=== PATIENT | female | born 1985 | race Hispanic/Latino ===

== ENCOUNTER 2017-04-26 14:15 | Emergency (ER) | payer SELFPAY ==
[2017-04-26] MEDS ORDERED: Insulin Regular 300 UNITS/3 ML VIAL ONE (14:51)
[2017-04-26 15:07] LABS: #Eosinphils 0.1 thou/uL (0.0-0.7); #Lymphocytes 2.4 thou/uL (1.20-3.40); #Monocytes 0.6 thou/uL (0.11-0.59); #Neutrophils 9.7 thou/uL (1.40-6.50); %Basophils 0.2 % (0.0-1.0); %Eosinophils 0.9 % (0.0-10.0); %Lymphocytes 18.7 % (21.0-51.0); %Monocytes 4.4 % (0.0-10.0); Hematocrit 39.2 % (36.0-47.0); Mean Platelet Volume 7.8 fL (7.4-10.4); Red Blood Cell (RBC) Count 5.09 mill/uL (4.20-5.40); White Blood Cell (WBC) Count 12.8 thou/uL (4.8-10.8)
[2017-04-26 15:18] LABS: Bilirubin Negative (Negative); Blood, Urine Large (Negative); Glucose, Urine (Dipstick) >=1000 mg/dL (Negative); Ketone, Urine Negative (Negative); Nitrite Negative (Negative); Protein, Urine (Dipstick) Negative (Neg-Trace); Urobilinogen 0.2 mg/dL (0.2-1.0)
[2017-04-26 15:24] LABS: Bacteria/HPF 1+ HPF (None Seen); Hyaline Casts/LPF 0-3 HYALINE CAST LPF (0-3 Hyaline)
[2017-04-26 15:29] LABS: ALT (SGPT) 19 U/L (8-55); AST (SGOT) 13 U/L (5-34); Alkaline Phosphatase 163 U/L (40-150); Anion Gap 13 mmol/L (10-20); BUN (Urea Nitrogen) 6 mg/dL (7.0-18.7); Bilirubin, Total 0.2 mg/dL (0.2-1.2); Calc. Creatinine Clearance 0 mL/min (70-130); Calcium 9.3 mg/dL (7.8-10.44); Carbon Dioxide 26 mmol/L (22-29); Chloride 95 mmol/L (98-107); Estimated GFR-MDRD 76; Globulin 3.7 g/dL (2.4-3.5); Lipase 27 U/L (8-78); Magnesium 1.7 mg/dL (1.6-2.6); Phosphorus 3.7 mg/dL (2.3-4.7); Protein, Total 7.6 g/dL (6.0-8.3)
--- NOTE | 2017-04-26 16:34 | RAD ---
PORTABLE AP CHEST X-RAY: 04/26/17 HISTORY: Syncope. COMPARISON: 02/09/16. FINDINGS: The cardiac silhouette and pulmonary vasculature are within normal limits. The lungs remain clear. Th ere has been no interval change from prior study. IMPRESSION: No acute cardiopulmonary process. POS: [facility]
[2017-04-26] MEDS ORDERED: HYDROcodone/Acetaminophen 5/325 mg Tablet ONE (16:43)
--- NOTE | 2017-04-26 16:45 | CT ---
NONCONTRAST CT HEAD 04/26/17 HISTORY: Patient passed out and hit head. Injury after hitting head. COMPARISON: 04/30/12. FINDINGS: There is no evidence of a hemorrhage, acute infarction, mass effect, or midline shift. The ventricula r system is normal in size, shape and position. No calvarial fracture is seen. There has been no inte rval change from the prior exam. IMPRESSION: No acute intracranial abnormality is demonstrated. POS: [facility]
[2017-04-26 18:24] LABS: Hemoglobin A1c 9.2 % (4.0-6.0)
[2017-04-26] MEDS ORDERED: Ibuprofen 200 MG TAB ONE (19:03)
[2017-04-27 03:11] LABS: Anion Gap 10 mmol/L (-14-95); T. Carbon Dioxide 27.9 mmol/L (1.0-85.0); pH (Venous) 7.403 (7.35-7.45); vO2 Saturation-calc 92.5 % (0.0-100.0)
== END 2017-04-26 19:47 | disposition home or self-care (01) ==
LOC: ERS 14:15
DX: E11.65 Type 2 diabetes mellitus with hyperglycemia (principal); N39.0 Urinary tract infection, site not specified; F31.9 Bipolar disorder, unspecified; Z87.891 Personal history of nicotine dependence
CPT/HCPCS: 36415; 36416; 70450; 71010; 80053; 81003; 81015; 81025; 82010; 82330; 82435; 82803; 83036; 83605; 83690; 83735; 83930; 84100; 84132; 84295; 85014; 85025; 93005; 96361; 96374; 96375; J0696; J1815

== ENCOUNTER 2017-06-07 15:47 | Emergency (ER) | payer SELFPAY ==
[2017-06-07] MEDS ORDERED: Acetaminophen 500 MG TAB ONE (16:19)
--- NOTE | 2017-06-07 16:42 | RAD ---
CHEST TWO VIEW: History: Cough. Comparison: 07-28-14 FINDINGS: Lungs are clear. No pneumothorax or effusion. Cardiac silhouette and mediastinal contours are within normal limits. IMPRESSION: No acute intrathoracic abnormality. POS: [facility]
== END 2017-06-07 17:19 | disposition home or self-care (01) ==
LOC: ERS 15:47
DX: J20.9 Acute bronchitis, unspecified (principal); E11.9 Type 2 diabetes mellitus without complications; F17.200 Nicotine dependence, unspecified, uncomplicated; Z79.84 Long term (current) use of oral hypoglycemic drugs
CPT/HCPCS: 71046; 99406

== ENCOUNTER 2017-09-21 19:09 | Emergency (ER) | payer MEDICAID, SELFPAY ==
[2017-09-21] MEDS ORDERED: Dexamethasone 10 MG/ML VIAL ONE (21:19)
[2017-09-21] MEDS ORDERED: Ketorolac Tromethamine 30 MG/ML VIAL ONE (21:19)
== END 2017-09-21 21:47 | disposition home or self-care (01) ==
LOC: ERS 19:09
DX: H65.91 Unspecified nonsuppurative otitis media, right ear (principal); E11.9 Type 2 diabetes mellitus without complications; Z87.891 Personal history of nicotine dependence
CPT/HCPCS: 96372; J1100; J1885

== ENCOUNTER 2017-11-28 09:25 | Emergency (ER) | payer MEDICAID, SELFPAY ==
[2017-11-28] MEDS ORDERED: Ondansetron ODT 8 MG TAB ONE (09:58)
== END 2017-11-28 11:24 | disposition home or self-care (01) ==
LOC: ERS 09:25
DX: K52.9 Noninfective gastroenteritis and colitis, unspecified (principal); E11.9 Type 2 diabetes mellitus without complications; F17.210 Nicotine dependence, cigarettes, uncomplicated; Z79.84 Long term (current) use of oral hypoglycemic drugs
CPT/HCPCS: 36416; 99283

== ENCOUNTER 2018-07-18 10:25 | Emergency (ER) | payer SELFPAY ==
[2018-07-18] MEDS ORDERED: Ibuprofen 800 MG TAB ONE (11:17)
== END 2018-07-18 11:23 | disposition home or self-care (01) ==
LOC: ERS 10:25
DX: K04.7 Periapical abscess without sinus (principal); E11.9 Type 2 diabetes mellitus without complications; F17.210 Nicotine dependence, cigarettes, uncomplicated
CPT/HCPCS: 99282

== ENCOUNTER 2020-05-11 19:01 | Emergency (ER) | payer SELFPAY | END 2020-05-11 19:50 | disposition home or self-care (01) | LOC: ERS 19:01 | DX: K02.9 Dental caries, unspecified (principal); K03.81 Cracked tooth; K08.89 Other specified disorders of teeth and supporting structures; E11.9 Type 2 diabetes mellitus without complications; F17.210 Nicotine dependence, cigarettes, uncomplicated | CPT/HCPCS: 99282 ==

== ENCOUNTER 2020-08-03 12:47 | Emergency (ER) | payer SELFPAY ==
[2020-08-03] MEDS ORDERED: Ketorolac Tromethamine 30 MG/ML VIAL ONE (14:35)
[2020-08-03] MEDS ORDERED: Metoclopramide 10 MG/10 ML UDCUP ONE (14:35)
[2020-08-03] MEDS ORDERED: Acetaminophen 500 MG TAB ONE (14:35)
[2020-08-03] MEDS ORDERED: diphenhydrAMINE 50 MG/ML VIAL ONE (14:35)
[2020-08-03] MEDS ORDERED: Metoclopramide HCl 10 MG/2 ML VIAL ONE (14:36)
== END 2020-08-03 15:35 | disposition home or self-care (01) ==
LOC: ERS 12:47
DX: R51.9 Headache, unspecified (principal); E11.9 Type 2 diabetes mellitus without complications; F17.210 Nicotine dependence, cigarettes, uncomplicated; Z79.84 Long term (current) use of oral hypoglycemic drugs
CPT/HCPCS: 96365; 96375; J1200; J1885; J2765

== ENCOUNTER 2021-03-18 17:13 | Emergency (ER) | payer SELFPAY | END 2021-03-18 19:05 | disposition home or self-care (01) | LOC: ERS 17:13 | DX: H92.02 Otalgia, left ear (principal) | CPT/HCPCS: 99282 ==

== ENCOUNTER 2022-03-11 15:45 | Emergency (ER) | payer SELFPAY ==
[2022-03-11] MEDS ORDERED: Ondansetron PF 4 MG/2 ML Vial ONE (16:17)
[2022-03-11 16:23] LABS: #Eosinphils 0.2 thou/uL (0.0-0.7); #Monocytes 0.8 thou/uL (0.11-0.59); #Neutrophils 11.2 thou/uL (1.40-6.50); %Basophils 0.3 % (0.0-1.0); %Eosinophils 1.1 % (0.0-10.0); %Lymphocytes 19.7 % (21.0-51.0); %Monocytes 5.4 % (0.0-10.0); %Neutrophils 73.5 % (42.0-75.0); Hemoglobin 14.9 g/dL (12.0-16.0); Mean Corpuscular HGB CONC 32.5 g/dL (32.0-36.0); Mean Corpuscular Hemoglobin 26.1 pg (27.0-31.0); Mean Corpuscular Volume 80.3 fL (78.0-98.0); Platelet Count 380 thou/uL (130-400); RBC Distribution Width 14.4 % (11.5-14.5); Red Blood Cell (RBC) Count 5.71 mill/uL (4.20-5.40); White Blood Cell (WBC) Count 15.2 thou/uL (4.8-10.8)
[2022-03-11 16:30] LABS: BHCG - Serum Negative (NEGATIVE); Pregs Control Background? CLEAR/WHITE (CLR/WHITE); Pregs Control Bar Appear? YES (CONTROL BAR)
[2022-03-11 16:38] LABS: Amphetamine Not Detected (NotDetected); Barbiturates Screen Not Detected (NotDetected); Benzodiazepine Screen Not Detected (NotDetected); Cocaine Metabolite Screen Not Detected (NotDetected); Methadone Not Detected (NotDetected); Methamphetamine Not Detected (NotDetected); Opiate Screen Not Detected (NotDetected); Oxycodone Screen Not Detected (NotDetected); Phencyclidine (PCP) Not Detected (NotDetected); THC/Cannabinoid Screen Detected (NotDetected); Tricyclic Screen Not Detected (NotDetected)
[2022-03-11 16:40] LABS: Bacteria/HPF 2+ HPF (None Seen); Bilirubin Negative (Negative); Blood, Urine Negative (Negative); Clarity Turbid (Clear); Glucose, Urine (Dipstick) Greater than 1000 mg/dL (Negative); Ketone, Urine 20 mg/dL (Negative); Leukocyte Negative Leu/uL (Negative); Nitrite Negative (Negative); Protein, Urine (Dipstick) 300 mg/dL (Neg-Trace); RBC/HPF 0-3 HPF (0-3)
[2022-03-11 16:41] LABS: Specific Gravity, Urine 1.047 (1.002-1.036)
[2022-03-11 16:42] LABS: Pregnancy Test - Urine (BHCG) Negative (Negative); Pregu Control Background? CLEAR/WHITE (CLR/WHITE); Pregu Control Bar Appear? YES (CONTROL BAR); Specific Gravity 1.047 (1.002-1.036)
[2022-03-11 16:48] LABS: Acetaminophen Less than 10.0 mcg/mL (10.0-30.0); Alcohol Less than 10 mg/dL (Less than 10); CK (CPK) 39 U/L (29-168); Lipase 39 U/L (8-78); Magnesium 1.5 mg/dL (1.6-2.6); Salicylate Less than 8.0 mg/dL (15.0-30.0)
[2022-03-11 16:49] LABS: ALT (SGPT) 33 U/L (8-55); AST (SGOT) 26 U/L (5-34); Albumin 4.5 g/dL (3.5-5.0); Alcohol Less than 10 mg/dL (Less than 10); Alkaline Phosphatase 130 U/L (40-110); Anion Gap 15 mmol/L (10-20); BUN (Urea Nitrogen) 11 mg/dL (7.0-18.7); Bilirubin, Total 0.3 mg/dL (0.2-1.2); Calc. Creatinine Clearance 0 mL/min (70-130); Calcium 10.1 mg/dL (7.8-10.44); Carbon Dioxide 24 mmol/L (22-29); Chloride 100 mmol/L (98-107); Estimated GFR 105; Glucose 302 mg/dL (70-105); Protein, Total 8.5 g/dL (6.0-8.3); Sodium 135 mmol/L (136-145)
[2022-03-11 19:40] LABS: Lactic Acid 2.1 mmol/L (0.5-2.2)
== END 2022-03-11 23:08 | disposition home or self-care (01) ==
LOC: ERS 15:45
DX: T38.3X2A Poisoning by insulin and oral hypoglycemic [antidiabetic] drugs, intentional self-harm, initial encounter (principal); E11.9 Type 2 diabetes mellitus without complications; I10 Essential (primary) hypertension; F17.210 Nicotine dependence, cigarettes, uncomplicated
CPT/HCPCS: 36416; 80053; 80306; 80307; 81003; 81015; 81025; 82550; 83605; 83690; 83735; 84443; 84703; 85025; 93005; 94760; 96374; J2405

== ENCOUNTER 2023-11-25 20:27 | Emergency (ER) | payer SELFPAY ==
[2023-11-25 21:19] LABS: Hematocrit 42.2 % (36.0-47.0); Hemoglobin 13.9 g/dL (12.0-16.0); Mean Corpuscular HGB CONC 32.9 g/dL (32.0-36.0); Mean Corpuscular Hemoglobin 24.4 pg (27.0-31.0); Mean Corpuscular Volume 74.2 fL (78.0-98.0); Mean Platelet Volume 9.4 fL (7.4-10.4); Platelet Count 406 10x3/uL (130-400); RBC Distribution Width 14.6 % (11.5-14.5); Red Blood Cell (RBC) Count 5.69 mill/uL (4.20-5.40)
[2023-11-25 21:45] LABS: Large Platelets 5.1 % (0-5); Lymphocytes 16 % (21-51); Microcytosis SLIGHT = 6-15 cells HPF (0-5); Monocytes 5 % (0-10); Neutrophil 77 % (42-75); Platelet Adequacy Comment Platelets Increased; Polychromasia SLIGHT = 2-3 cells HPF (0-2); Smudge Cells 19.4 %
[2023-11-25 21:46] LABS: Troponin I 0.014 ng/mL (< 0.028)
[2023-11-25 21:47] LABS: ALT (SGPT) 14 U/L (8-55); AST (SGOT) 13 U/L (5-34); Albumin 3.6 g/dL (3.5-5.0); Alkaline Phosphatase 127 U/L (40-110); Anion Gap 18 mmol/L (10-20); BUN (Urea Nitrogen) 7 mg/dL (7.0-18.7); Bilirubin, Total 0.2 mg/dL (0.2-1.2); Calc. Creatinine Clearance 0 mL/min (70-130); Calcium 9.8 mg/dL (7.8-10.44); Carbon Dioxide 20 mmol/L (22-29); Chloride 99 mmol/L (98-107); Estimated GFR 117; Globulin 4.3 g/dL (2.4-3.5); Glucose 279 mg/dL (70-105); Potassium 3.6 mmol/L (3.5-5.1); Protein, Total 7.9 g/dL (6.0-8.3); Sodium 133 mmol/L (136-145)
== END 2023-11-26 01:31 | disposition home or self-care (01) ==
LOC: ERS 20:27
DX: I10 Essential (primary) hypertension (principal); D75.839 Thrombocytosis, unspecified; D72.829 Elevated white blood cell count, unspecified; E11.9 Type 2 diabetes mellitus without complications; F17.210 Nicotine dependence, cigarettes, uncomplicated
CPT/HCPCS: 36415; 71046; 80053; 82550; 84484; 85025; 85379; 93005; 96360

== ENCOUNTER → 2024-04-28 | Emergency (ER) | payer SELFPAY ==
[~2024-04-28] MED LIST: Bacitracin 1 PK ONE; HYDROcodone/Acetaminophen 10/325 mg Tablet ONE; Lidocaine 1% w/Epinephrine 1:100K 20 ML VIAL ONE; Lidocaine/Transparent Dressing 1 EACH KIT ONE
== END ==
LOC: ERS 20:58
DX: S81.012A Laceration without foreign body, left knee, initial encounter (principal); S81.011A Laceration without foreign body, right knee, initial encounter; E11.9 Type 2 diabetes mellitus without complications; I10 Essential (primary) hypertension; F17.210 Nicotine dependence, cigarettes, uncomplicated; Z79.899 Other long term (current) drug therapy; W22.8XXA Striking against or struck by other objects, initial encounter
CPT/HCPCS: 12002; 99283

== ENCOUNTER 2024-05-02 13:16 | Emergency (ER) | payer SELFPAY ==
[2024-05-02] MEDS ORDERED: Ibuprofen 800 MG TAB ONE (14:20)
[2024-05-02] MEDS ORDERED: Bacitracin 1 PK ONE (14:23)
== END 2024-05-02 14:48 | disposition home or self-care (01) ==
LOC: ERS 13:16
DX: S80.211A Abrasion, right knee, initial encounter (principal); L03.115 Cellulitis of right lower limb; Z48.00 Encounter for change or removal of nonsurgical wound dressing; E11.9 Type 2 diabetes mellitus without complications; I10 Essential (primary) hypertension; F17.210 Nicotine dependence, cigarettes, uncomplicated; X58.XXXA Exposure to other specified factors, initial encounter
CPT/HCPCS: 87070; 87077; 87205; 99283

== ENCOUNTER 2025-02-14 15:52 | Emergency (ER) | payer SELFPAY ==
[~2025-02-14 15:52] MED LIST changes: -Bacitracin 1 PK ONE; -HYDROcodone/Acetaminophen 10/325 mg Tablet ONE; +Iopamidol-370 76% 500 ML MDV (1 ML CHARGE) ONE; -Lidocaine 1% w/Epinephrine 1:100K 20 ML VIAL ONE; -Lidocaine/Transparent Dressing 1 EACH KIT ONE
[2025-02-14 18:00] LABS: Anion Gap 17 mmol/L (10-20); BUN (Urea Nitrogen) 9 mg/dL (7.0-18.7); Calc. Creatinine Clearance 0 mL/min (70-130); Carbon Dioxide 23 mmol/L (22-29); Chloride 99 mmol/L (98-107); Potassium 3.8 mmol/L (3.5-5.1); Sodium 135 mmol/L (136-145)
[2025-02-14 18:01] LABS: ALT (SGPT) 13 U/L (Less than 34); AST (SGOT) 17 U/L (11-34); Albumin 4.0 g/dL (3.1-4.5); Alkaline Phosphatase 149 U/L (40-110); Bilirubin, Total 0.3 mg/dL (0.3-1.2); Calcium 10.0 mg/dL (7.8-10.44); Globulin 4.1 g/dL (2.4-3.5); Glucose 327 mg/dL (70-105); Lipase 104 U/L (8-78)
[2025-02-14 18:04] LABS: #Basophils 0.03 10x3/uL (0.0-0.2); #Eosinophils 0.19 10x3/uL (0.0-0.7); #Monocytes 0.83 10x3/uL (0.11-0.59); #Neutrophils 8.33 10x3/uL (1.40-6.50); %Basophils 0.2 % (0.0-1.0); %Eosinophils 1.5 % (0.0-10.0); %Lymphocytes 24.6 % (21.0-51.0); %Monocytes 6.6 % (0.0-10.0); %Neutrophils 66.5 % (42.0-75.0); Hematocrit 43.5 % (36.0-47.0); Hemoglobin 14.0 g/dL (12.0-16.0); Mean Corpuscular Hemoglobin 24.0 pg (27.0-31.0); Mean Corpuscular Volume 74.6 fL (78.0-98.0); Platelet Count 409 10x3/uL (130-400); Red Blood Cell (RBC) Count 5.83 mill/uL (4.20-5.40); White Blood Cell (WBC) Count 12.55 10x3/uL (4.8-10.8)
[2025-02-14] MEDS ORDERED: Pantoprazole 40 MG VIAL ONE (18:18)
[2025-02-14] MEDS ORDERED: Ondansetron PF 4 MG/2 ML Vial ONE (18:18)
[2025-02-14 19:16] LABS: Bacteria/HPF None Seen HPF (None Seen); CAUTI Indications for Culture Pelvic or flank pain; Glucose, Urine (Dipstick) Greater than 1000 mg/dL (Negative); Leukocyte Negative Leu/uL (Negative); Protein, Urine (Dipstick) 50 mg/dL (Neg-Trace); RBC/HPF 0-3 HPF (0-3); Specific Gravity, Urine 1.044 (1.002-1.036); WBC/HPF 0-3 HPF (0-3)
[2025-02-14 19:17] LABS: Microcytosis SLIGHT = 6-15 cells HPF (0-5); Platelet Adequacy Comment Platelets Increased; Polychromasia SLIGHT = 2-3 cells HPF (0-2)
[2025-02-14 19:27] LABS: Urine Culture Reflex No No
[2025-02-14 20:57] LABS: Pregnancy Test - Urine (BHCG) Negative (Negative); Pregu Control Background? CLEAR/WHITE (CLR/WHITE); Pregu Control Bar Appear? YES (CONTROL BAR)
[2025-02-14 21:07] LABS: BHCG - Serum Negative (NEGATIVE); Pregs Control Background? CLEAR/WHITE (CLR/WHITE); Pregs Control Bar Appear? YES (CONTROL BAR)
[2025-02-14 22:54] LABS: ALT (SGPT) 10 U/L (Less than 34); AST (SGOT) 15 U/L (11-34); Albumin 3.3 g/dL (3.1-4.5); Alkaline Phosphatase 121 U/L (40-110); Anion Gap 15 mmol/L (10-20); BUN (Urea Nitrogen) 9 mg/dL (7.0-18.7); Bilirubin, Total 0.3 mg/dL (0.3-1.2); Calc. Creatinine Clearance 0 mL/min (70-130); Calcium 8.7 mg/dL (7.8-10.44); Carbon Dioxide 23 mmol/L (22-29); Chloride 102 mmol/L (98-107); Globulin 3.5 g/dL (2.4-3.5); Glucose 300 mg/dL (70-105); Potassium 3.7 mmol/L (3.5-5.1); Sodium 136 mmol/L (136-145)
== END 2025-02-14 23:15 | disposition home or self-care (01) ==
LOC: ERS 15:52
DX: K80.20 Calculus of gallbladder without cholecystitis without obstruction (principal); E11.9 Type 2 diabetes mellitus without complications; I10 Essential (primary) hypertension; F17.210 Nicotine dependence, cigarettes, uncomplicated
CPT/HCPCS: 36415; 74177; 76705; 80053; 81001; 81025; 83690; 84703; 85025; 96374; 96375; 96376; J2270; J2405; J2470; Q0162; Q9967

== ENCOUNTER 2025-03-17 10:29 | Inpatient (IN) | payer SELFPAY ==
[2025-03-17] MEDS ORDERED: Ondansetron PF 4 MG/2 ML Vial ONE ×3 (11:04→17:09)
[2025-03-17] MEDS ORDERED: HYDROmorphone 0.5 MG/0.5 ML SYRINGE ONE ×2 (11:05→12:48)
[2025-03-17 11:14] LABS: #Basophils 0.03 10x3/uL (0.0-0.2); #Eosinophils 0.12 10x3/uL (0.0-0.7); #Monocytes 0.59 10x3/uL (0.11-0.59); #Neutrophils 11.55 10x3/uL (1.40-6.50); %Basophils 0.2 % (0.0-1.0); %Eosinophils 0.8 % (0.0-10.0); %Lymphocytes 13.4 % (21.0-51.0); %Monocytes 4.1 % (0.0-10.0); %Neutrophils 81.1 % (42.0-75.0); Hematocrit 44.6 % (36.0-47.0); Hemoglobin 14.5 g/dL (12.0-16.0); Mean Corpuscular Hemoglobin 23.9 pg (27.0-31.0); Mean Corpuscular Volume 73.5 fL (78.0-98.0); Platelet Count 398 10x3/uL (130-400); Red Blood Cell (RBC) Count 6.07 mill/uL (4.20-5.40); White Blood Cell (WBC) Count 14.25 10x3/uL (4.8-10.8)
[2025-03-17 11:50] LABS: ALT (SGPT) 12 U/L (Less than 34); AST (SGOT) 21 U/L (11-34); Albumin 3.8 g/dL (3.1-4.5); Alkaline Phosphatase 123 U/L (40-110); Anion Gap 19 mmol/L (10-20); BUN (Urea Nitrogen) 10 mg/dL (7.0-18.7); Bilirubin, Total 0.4 mg/dL (0.3-1.2); Calc. Creatinine Clearance 0 mL/min (70-130); Calcium 9.9 mg/dL (7.8-10.44); Carbon Dioxide 25 mmol/L (22-29); Chloride 99 mmol/L (98-107); Globulin 4.3 g/dL (2.4-3.5); Glucose 341 mg/dL (70-105); Lipase 79 U/L (8-78); Potassium 3.6 mmol/L (3.5-5.1); Sodium 139 mmol/L (136-145)
[2025-03-17 12:21] LABS: Bacteria/HPF None Seen HPF (None Seen); CAUTI Indications for Culture Dysuria,urgency,freq; Glucose, Urine (Dipstick) Greater than 1000 mg/dL (Negative); Leukocyte Negative Leu/uL (Negative); Protein, Urine (Dipstick) 20 mg/dL (Neg-Trace); RBC/HPF 0-3 HPF (0-3); Specific Gravity, Urine 1.044 (1.002-1.036); WBC/HPF 0-3 HPF (0-3)
[2025-03-17 12:22] LABS: Urine Culture Reflex No No
[2025-03-17] MEDS ORDERED: Calcium Carbonate 500 MG ChewTAB PO PRN (13:28)
[2025-03-17] MEDS ORDERED: Dextrose 50% Abboject 50 ML SYRINGE SLOW IVP PRN (13:28)
[2025-03-17] MEDS ORDERED: Glucagon 1 MG/ML KIT IM PRN (13:28)
[2025-03-17] MEDS ORDERED: Losartan 25 MG TAB ONE (16:07)
[2025-03-17] MEDS: Losartan 25 MG TAB PO SCH (16:09)
[2025-03-17] MEDS: Ondansetron PF 4 MG/2 ML Vial IVP PRN (17:14)
[2025-03-17] MEDS: hydrALAZINE 20 MG/ML VIAL SLOW IVP PRN (18:26)
[2025-03-17] MEDS: Ketorolac Tromethamine 30 MG (1 mL) VIAL IVP SCH (18:26)
[2025-03-17 18:38] VITALS: BMI 34.0
[2025-03-17] MEDS: Metoclopramide HCl 10 MG (2 mL) VIAL IVP SCH (19:37)
[2025-03-17] MEDS: Famotidine/PF 20 mg/2ml Vial SLOW IVP SCH (20:51)
[2025-03-17] MEDS: Famotidine 20 MG TAB PO SCH (21:13)
[2025-03-18] MEDS: Metoclopramide HCl 10 MG (2 mL) VIAL IVP SCH ×2 (04:47→18:46)
[2025-03-18 06:37] LABS: #Basophils 0.03 10x3/uL (0.0-0.2); #Eosinophils Less than 0.03 10x3/uL (0.0-0.7); #Monocytes 0.82 10x3/uL (0.11-0.59); #Neutrophils 12.35 10x3/uL (1.40-6.50); %Basophils 0.2 % (0.0-1.0); %Eosinophils 0.1 % (0.0-10.0); %Lymphocytes 10.9 % (21.0-51.0); %Monocytes 5.5 % (0.0-10.0); %Neutrophils 82.9 % (42.0-75.0); Hematocrit 44.6 % (36.0-47.0); Hemoglobin 13.6 g/dL (12.0-16.0); Mean Corpuscular Hemoglobin 23.7 pg (27.0-31.0); Mean Corpuscular Volume 77.7 fL (78.0-98.0); Platelet Count 365 10x3/uL (130-400); Red Blood Cell (RBC) Count 5.74 mill/uL (4.20-5.40); White Blood Cell (WBC) Count 14.89 10x3/uL (4.8-10.8)
[2025-03-18 07:06] LABS: ALT (SGPT) 45 U/L (Less than 34); AST (SGOT) 42 U/L (11-34); Albumin 3.4 g/dL (3.1-4.5); Alkaline Phosphatase 218 U/L (40-110); Anion Gap 15 mmol/L (10-20); BUN (Urea Nitrogen) 12 mg/dL (7.0-18.7); Bilirubin, Total 0.4 mg/dL (0.3-1.2); Calc. Creatinine Clearance 201 mL/min (70-130); Calcium 9.3 mg/dL (7.8-10.44); Carbon Dioxide 22 mmol/L (22-29); Chloride 103 mmol/L (98-107); Globulin 3.8 g/dL (2.4-3.5); Glucose 229 mg/dL (70-105); Potassium 3.6 mmol/L (3.5-5.1); Sodium 136 mmol/L (136-145)
[2025-03-18] MEDS ORDERED: Pantoprazole 40 MG VIAL IVP SCH (09:00)
[2025-03-18] MEDS ORDERED: Sincalide 5 MCG VIAL ONE (09:01)
[2025-03-18] MEDS ORDERED: Bacteriostatic Normal Saline 30 ML VIAL ONE (09:01)
[2025-03-18] MEDS: Losartan 25 MG TAB PO SCH (10:48)
[2025-03-18] MEDS: Insulin Glargine 30 UNITS/0.3 ML VIAL SC SCH (14:59)
[2025-03-18] MEDS: Pantoprazole 40 MG VIAL IVP SCH (14:59)
[2025-03-18] MEDS: Electrolyte Replacement Protocol 1 EACH FS ONE (20:48)
[2025-03-19 05:31] LABS: #Basophils Less than 0.03 10x3/uL (0.0-0.2); #Eosinophils 0.13 10x3/uL (0.0-0.7); #Monocytes 0.92 10x3/uL (0.11-0.59); #Neutrophils 8.59 10x3/uL (1.40-6.50); %Basophils 0.2 % (0.0-1.0); %Eosinophils 1.1 % (0.0-10.0); %Lymphocytes 20.1 % (21.0-51.0); %Monocytes 7.6 % (0.0-10.0); %Neutrophils 70.7 % (42.0-75.0); Hematocrit 43.0 % (36.0-47.0); Hemoglobin 13.4 g/dL (12.0-16.0); Mean Corpuscular Hemoglobin 23.7 pg (27.0-31.0); Mean Corpuscular Volume 76.1 fL (78.0-98.0); Platelet Count 344 10x3/uL (130-400); Red Blood Cell (RBC) Count 5.65 mill/uL (4.20-5.40); White Blood Cell (WBC) Count 12.14 10x3/uL (4.8-10.8)
[2025-03-19 05:59] LABS: ALT (SGPT) 29 U/L (Less than 34); AST (SGOT) 18 U/L (11-34); Albumin 3.4 g/dL (3.1-4.5); Alkaline Phosphatase 160 U/L (40-110); Anion Gap 16 mmol/L (10-20); BUN (Urea Nitrogen) 8 mg/dL (7.0-18.7); Bilirubin, Total 0.5 mg/dL (0.3-1.2); Calc. Creatinine Clearance 205 mL/min (70-130); Calcium 9.0 mg/dL (7.8-10.44); Carbon Dioxide 24 mmol/L (22-29); Chloride 101 mmol/L (98-107); Globulin 3.6 g/dL (2.4-3.5); Glucose 190 mg/dL (70-105); Magnesium 1.4 mg/dL (1.6-2.6); Potassium 3.2 mmol/L (3.5-5.1); Sodium 138 mmol/L (136-145)
[2025-03-19] MEDS: Metoclopramide HCl 10 MG (2 mL) VIAL IVP SCH (06:10)
[2025-03-19] MEDS: Acetaminophen 325 MG TAB PO PRN (08:33)
[2025-03-19] MEDS: Magnesium Sulfate In Water 4 GM in Premix 1 BAG IVPB SCH (08:34)
[2025-03-19] MEDS: Insulin Glargine 30 UNITS/0.3 ML VIAL SC SCH ×2 (08:38→09:37)
[2025-03-19] MEDS: NIFEdipine XL 30 MG ER.TAB PO SCH (09:37)
[2025-03-19] MEDS: Lidocaine 2% Viscous Solution 10 ML, Aluminum & Magnesium Hydroxide 30 ML SSW SCH (11:31)
[2025-03-19] MEDS: Mag-Al 1200 mg/1200 mg/30 ML UDCUP PO PRN (14:27)
[2025-03-20 06:22] LABS: #Basophils 0.04 10x3/uL (0.0-0.2); #Eosinophils 0.10 10x3/uL (0.0-0.7); #Monocytes 0.79 10x3/uL (0.11-0.59); #Neutrophils 7.29 10x3/uL (1.40-6.50); %Basophils 0.4 % (0.0-1.0); %Eosinophils 0.9 % (0.0-10.0); %Lymphocytes 26.7 % (21.0-51.0); %Monocytes 7.0 % (0.0-10.0); %Neutrophils 64.6 % (42.0-75.0); Hematocrit 41.5 % (36.0-47.0); Hemoglobin 12.9 g/dL (12.0-16.0); Mean Corpuscular Hemoglobin 23.6 pg (27.0-31.0); Mean Corpuscular Volume 76.0 fL (78.0-98.0); Platelet Count 328 10x3/uL (130-400); Red Blood Cell (RBC) Count 5.46 mill/uL (4.20-5.40); White Blood Cell (WBC) Count 11.29 10x3/uL (4.8-10.8)
[2025-03-20 06:42] LABS: ALT (SGPT) 18 U/L (Less than 34); AST (SGOT) 18 U/L (11-34); Albumin 3.2 g/dL (3.1-4.5); Alkaline Phosphatase 119 U/L (40-110); Anion Gap 9 mmol/L (10-20); BUN (Urea Nitrogen) 11 mg/dL (7.0-18.7); Bilirubin, Total 0.4 mg/dL (0.3-1.2); Calc. Creatinine Clearance 209 mL/min (70-130); Calcium 9.0 mg/dL (7.8-10.44); Carbon Dioxide 27 mmol/L (22-29); Chloride 102 mmol/L (98-107); Globulin 3.5 g/dL (2.4-3.5); Glucose 207 mg/dL (70-105); Magnesium 1.8 mg/dL (1.6-2.6); Potassium 3.3 mmol/L (3.5-5.1); Sodium 135 mmol/L (136-145)
[2025-03-20] MEDS: Pantoprazole 40 MG DR.TAB PO SCH (08:12)
[2025-03-20] MEDS: Magnesium 2 GM/50 ML(in water) 2 GM in Premix 1 BAG IVPB SCH (08:14)
[2025-03-20] MEDS ORDERED: NIFEdipine XL 30 MG ER.TAB PO SCH (09:00)
[2025-03-20 14:34] LABS: BHCG - Serum Negative (NEGATIVE); Pregs Control Background? CLEAR/WHITE (CLR/WHITE); Pregs Control Bar Appear? YES (CONTROL BAR)
[2025-03-20 16:28] VITALS: BP 152/88
[2025-03-20 16:49] VITALS: TEMP 97.2
[2025-03-20] MEDS ORDERED: Losartan 25 MG TAB PO SCH (21:00)
== END 2025-03-20 17:41 | disposition home or self-care (01) | DRG 446 ==
LOC: ERS 10:29 → ERHOLD 13:35 → OBSVTOIN 13:35 → SURG B 18:09
PROVIDERS: ADMIT Colon & Rectal Surgery; ATTEND Colon & Rectal Surgery
DX: K83.8 Other specified diseases of biliary tract (principal); I10 Essential (primary) hypertension; Z79.899 Other long term (current) drug therapy; F31.9 Bipolar disorder, unspecified; K21.9 Gastro-esophageal reflux disease without esophagitis; F39 Unspecified mood [affective] disorder; E11.65 Type 2 diabetes mellitus with hyperglycemia; F17.200 Nicotine dependence, unspecified, uncomplicated; Z91.148 Patient's other noncompliance with medication regimen for other reason; R10.9 Unspecified abdominal pain; D72.829 Elevated white blood cell count, unspecified; E87.6 Hypokalemia; E83.42 Hypomagnesemia; F12.20 Cannabis dependence, uncomplicated
CPT/HCPCS: 36415; 36416; 71045; 76705; 78227; 80053; 81001; 83036; 83690; 83735; 84484; 84703; 85025; 93005; 96361; 96365; 96366; 96375; 96376; A9537; G0378; J0360; J1171; J1308; J1815; J1885; J2405; J2470; J2543; J2765; J2805; J3475; J7120; Q0162

== ENCOUNTER 2025-04-19 06:25 | Emergency (ER) | payer SELFPAY ==
[2025-04-19] MEDS ORDERED: Ondansetron PF 4 MG/2 ML Vial ONE (07:29)
[2025-04-19 07:40] LABS: #Basophils 0.03 10x3/uL (0.0-0.2); #Eosinophils 0.07 10x3/uL (0.0-0.7); #Monocytes 0.74 10x3/uL (0.11-0.59); #Neutrophils 13.29 10x3/uL (1.40-6.50); %Basophils 0.2 % (0.0-1.0); %Eosinophils 0.4 % (0.0-10.0); %Lymphocytes 12.1 % (21.0-51.0); %Monocytes 4.6 % (0.0-10.0); %Neutrophils 82.3 % (42.0-75.0); Hematocrit 41.6 % (36.0-47.0); Hemoglobin 13.2 g/dL (12.0-16.0); Mean Corpuscular Hemoglobin 23.7 pg (27.0-31.0); Mean Corpuscular Volume 74.8 fL (78.0-98.0); Platelet Count 447 10x3/uL (130-400); Red Blood Cell (RBC) Count 5.56 mill/uL (4.20-5.40); White Blood Cell (WBC) Count 16.15 10x3/uL (4.8-10.8)
[2025-04-19 07:49] LABS: BHCG - Serum Negative (NEGATIVE); Pregs Control Background? CLEAR/WHITE (CLR/WHITE); Pregs Control Bar Appear? YES (CONTROL BAR)
[2025-04-19 07:57] LABS: ALT (SGPT) 7 U/L (Less than 34); AST (SGOT) 18 U/L (11-34); Albumin 4.1 g/dL (3.1-4.5); Alkaline Phosphatase 105 U/L (40-110); Anion Gap 17 mmol/L (10-20); BUN (Urea Nitrogen) 17 mg/dL (7.0-18.7); Bilirubin, Total 0.3 mg/dL (0.3-1.2); Calc. Creatinine Clearance 0 mL/min (70-130); Calcium 10.1 mg/dL (7.8-10.44); Carbon Dioxide 25 mmol/L (22-29); Chloride 100 mmol/L (98-107); Globulin 4.2 g/dL (2.4-3.5); Glucose 238 mg/dL (70-105); Lipase 59 U/L (8-78); Potassium 3.6 mmol/L (3.5-5.1); Sodium 138 mmol/L (136-145)
[2025-04-19 08:13] LABS: Bacteria/HPF None Seen HPF (None Seen); CAUTI Indications for Culture Pelvic or flank pain; Glucose, Urine (Dipstick) 70 mg/dL (Negative); Leukocyte Negative Leu/uL (Negative); Protein, Urine (Dipstick) 70 mg/dL (Neg-Trace); RBC/HPF None Seen HPF (0-3); Specific Gravity, Urine 1.038 (1.002-1.036)
[2025-04-19 08:14] LABS: Urine Culture Reflex No No
[2025-04-19] MEDS ORDERED: Iopamidol-370 76% 500 ML MDV (1 ML CHARGE) ONE (09:31)
[2025-04-19] MEDS ORDERED: Metoclopramide HCl 10 MG (2 mL) VIAL ONE (10:00)
[2025-04-19] MEDS ORDERED: diphenhydrAMINE 50 MG/ML VIAL ONE (10:00)
[2025-04-19] MEDS ORDERED: hydrALAZINE 20 MG/ML VIAL ONE (10:51)
[2025-04-19] MEDS ORDERED: Famotidine/PF 20 mg/2ml Vial ONE (10:51)
== END 2025-04-19 11:43 | disposition home or self-care (01) ==
LOC: ERS 06:25
DX: R10.11 Right upper quadrant pain (principal); R10.13 Epigastric pain; R11.2 Nausea with vomiting, unspecified; E11.9 Type 2 diabetes mellitus without complications; I10 Essential (primary) hypertension; F17.210 Nicotine dependence, cigarettes, uncomplicated
CPT/HCPCS: 74177; 76705; 80053; 81001; 83605; 83690; 84703; 85025; 96361; 96374; 96375; J0360; J1200; J1308; J2270; J2405; J2765